=== PATIENT | male | born 1945 | race Caucasian/White ===

== ENCOUNTER → 2020-11-16 | Outpatient (CLI) | payer OTHER | END | disposition home or self-care (01) | LOC: LAB 02:30 | DX: N18.30 Chronic kidney disease, stage 3 unspecified (principal); D63.1 Anemia in chronic kidney disease; N25.81 Secondary hyperparathyroidism of renal origin; E55.9 Vitamin D deficiency, unspecified; E78.00 Pure hypercholesterolemia, unspecified; D51.8 Other vitamin B12 deficiency anemias; D52.8 Other folate deficiency anemias; D50.9 Iron deficiency anemia, unspecified; R76.9 Abnormal immunological finding in serum, unspecified; R94.5 Abnormal results of liver function studies; R94.6 Abnormal results of thyroid function studies | CPT/HCPCS: 86335 ==

== ENCOUNTER → 2020-11-17 | Outpatient (CLI) | payer OTHER ==
[2020-11-17 14:48] LABS: Creatinine Urine 52.3 mg/dL (27.00-270.00); Microalbumin, Urine Quant. 8.28 mg/L (0.000-20.000); Protein, Urine Quantitative 5.3 mg/dL (0.0-11.9)
== END | disposition home or self-care (01) ==
LOC: LAB 09:30 → LAB SHORT 09:30 → LAB FUT 11-15 13:10
PROVIDERS: Internal Medicine Nephrology
DX: N18.30 Chronic kidney disease, stage 3 unspecified (principal); D63.1 Anemia in chronic kidney disease; N25.81 Secondary hyperparathyroidism of renal origin; E55.9 Vitamin D deficiency, unspecified; E78.00 Pure hypercholesterolemia, unspecified; R76.9 Abnormal immunological finding in serum, unspecified; R94.5 Abnormal results of liver function studies; R94.6 Abnormal results of thyroid function studies
CPT/HCPCS: 81050; 82043; 82570; 84156

== ENCOUNTER 2022-09-01 13:30 | Day surgery (SDC) | payer OTHER ==
[~2022-09-01] VITALS: Ht 167.6 cm; Wt 63.6 kg
[2022-09-01] MEDS ORDERED: FINA5 (14:01)
[2022-09-01] MEDS ORDERED: Amlodipine Bes2.5 MG (14:01)
[2022-09-01] MEDS ORDERED: GUAI200 (14:02)
[2022-09-01] MEDS ORDERED: ERGO50000 (14:03)
[2022-09-01] MEDS ORDERED: ALFU10 (14:04)
[2022-09-01 16:40] VITALS: BP 122/75
== END 2022-09-01 16:23 | disposition home or self-care (01) ==
LOC: ORSCSDS 13:30
PROVIDERS: Internal Medicine Gastroenterology
PROC: 0DBG8ZX Excision of Left Large Intestine, Via Natural or Artificial Opening Endoscopic, Diagnostic (ICD-10-PCS; principal; 2022-09-01 15:00)
PROC: 0DBP8ZX Excision of Rectum, Via Natural or Artificial Opening Endoscopic, Diagnostic (ICD-10-PCS; principal; 2022-09-01 15:00)
PROC: 0DBF8ZX Excision of Right Large Intestine, Via Natural or Artificial Opening Endoscopic, Diagnostic (ICD-10-PCS; principal; 2022-09-01 15:00)
PROC: 0DBL8ZX Excision of Transverse Colon, Via Natural or Artificial Opening Endoscopic, Diagnostic (ICD-10-PCS; principal; 2022-09-01 15:00)
DX: K51.90 Ulcerative colitis, unspecified, without complications (principal); D12.3 Benign neoplasm of transverse colon; K63.89 Other specified diseases of intestine; K64.8 Other hemorrhoids; I10 Essential (primary) hypertension; N19 Unspecified kidney failure; Z79.899 Other long term (current) drug therapy
CPT/HCPCS: 88305; J0461; J2001; J2405; J2704; J3010; J7120; Q9968